=== PATIENT | male | born 1975 | race Caucasian/White ===

== ENCOUNTER → 2016-06-30 | Outpatient (CLI) | payer OTHER ==
[~2016-06-30] MED LIST: TIZA4CAP3 PO
== END ==
LOC: M OUTALCOH 08:05
PROVIDERS: ATTEND Psychiatry & Neurology Psychiatry
DX: F11.20 Opioid dependence, uncomplicated (principal)

== ENCOUNTER 2016-07-04 09:00 | Outpatient (RCR) | payer MEDICAID | END 2016-07-06 | LOC: M OUTALCOH 09:00 | PROVIDERS: ATTEND Psychiatry & Neurology Psychiatry | DX: F11.20 Opioid dependence, uncomplicated (principal); F17.200 Nicotine dependence, unspecified, uncomplicated ==

== ENCOUNTER 2016-07-30 10:00 | Outpatient (RCR) | payer MEDICAID | END 2016-08-06 | LOC: M OUTALCOH 10:00 | PROVIDERS: ATTEND Psychiatry & Neurology Psychiatry | DX: F11.20 Opioid dependence, uncomplicated (principal); F17.200 Nicotine dependence, unspecified, uncomplicated ==

== ENCOUNTER 2016-08-29 14:00 | Outpatient (RCR) | payer MEDICAID | END 2016-09-05 | disposition home or self-care (01) | LOC: M OUTALCOH 14:00 | PROVIDERS: ATTEND Psychiatry & Neurology Psychiatry | DX: F11.20 Opioid dependence, uncomplicated (principal); F17.200 Nicotine dependence, unspecified, uncomplicated ==

== ENCOUNTER 2016-10-02 10:00 | Outpatient (RCR) | payer MEDICAID ==
[2016-10-06] MEDS ORDERED: PREG100CA PO (19:21)
== END 2016-10-06 ==
LOC: M OUTALCOH 10:00
PROVIDERS: ATTEND Psychiatry & Neurology Psychiatry
DX: F11.20 Opioid dependence, uncomplicated (principal); F17.200 Nicotine dependence, unspecified, uncomplicated

== ENCOUNTER 2016-10-06 19:15 | Emergency (ER) | payer MEDICAID, OTHER ==
[~2016-10-06] VITALS: Ht 180.3 cm; Wt 70.5 kg
[2016-10-06] MEDS ORDERED: PREG100CA PO (19:21)
[2016-10-06 20:30] VITALS: BP 138/82
--- NOTE | 2016-10-07 00:47 | REP ---
Clinical: Trauma . Technique: AP, lateral, bilateral oblique views right ankle . Findings: No acute fracture or dislocation. Skeletal structures and joint spaces are intact and normal. Ankle mortise appears stable. No subcutaneous emphysema or radiodense foreign body. Impression: Normal right ankle radiograph series. Signed by Colton Caceres MD 10/07/2016 12:38 A
== END 2016-10-06 20:32 | disposition home or self-care (01) ==
LOC: M ED 19:15
DX: S93.401A Sprain of unspecified ligament of right ankle, initial encounter (principal); Z72.0 Tobacco use; X50.3XXA Overexertion from repetitive movements, initial encounter; Y92.89 Other specified places as the place of occurrence of the external cause; Y93.01 Activity, walking, marching and hiking; Y99.9 Unspecified external cause status

== ENCOUNTER 2016-10-31 09:00 | Outpatient (RCR) | payer MEDICAID ==
[~2016-10-31 09:00] MED LIST changes: +PREG100CA PO
[2016-11-02] MEDS ORDERED: SUBO4MIS SL (14:41)
[2016-11-02] MEDS ORDERED: KETO2CR EXT (16:01)
== END 2016-11-06 ==
LOC: M OUTALCOH 09:00
PROVIDERS: ATTEND Psychiatry & Neurology Psychiatry
DX: F11.20 Opioid dependence, uncomplicated (principal); F17.200 Nicotine dependence, unspecified, uncomplicated

== ENCOUNTER 2016-11-02 14:19 | Emergency (ER) | payer MEDICAID, OTHER ==
[~2016-11-02] VITALS: Ht 180.3 cm; Wt 71.8 kg
[2016-11-02] MEDS ORDERED: SUBO4MIS SL (14:41)
[2016-11-02] MEDS ORDERED: KETO2CR EXT (16:01)
[2016-11-02 16:21] VITALS: BP 132/78
== END 2016-11-02 16:22 | disposition home or self-care (01) ==
LOC: M ED 14:19
DX: B36.0 Pityriasis versicolor (principal)

== ENCOUNTER 2016-12-04 16:00 | Outpatient (RCR) | payer MEDICAID ==
[~2016-12-04 16:00] MED LIST changes: +KETO2CR EXT; +SUBO4MIS SL
== END 2016-12-06 ==
LOC: M OUTALCOH 16:00
PROVIDERS: ATTEND Psychiatry & Neurology Psychiatry
DX: F11.20 Opioid dependence, uncomplicated (principal); F17.200 Nicotine dependence, unspecified, uncomplicated

== ENCOUNTER 2017-02-04 11:00 | Outpatient (RCR) | payer MEDICAID | END 2017-02-05 | LOC: M OUTALCOH 11:00 | PROVIDERS: ATTEND Psychiatry & Neurology Psychiatry | DX: F11.20 Opioid dependence, uncomplicated (principal); F17.200 Nicotine dependence, unspecified, uncomplicated ==

== ENCOUNTER → 2017-10-05 | Outpatient (CLI) | payer OTHER | LOC: M PAIN 09:45 | DX: M54.12 Radiculopathy, cervical region (principal); M96.1 Postlaminectomy syndrome, not elsewhere classified; M79.1 Myalgia; J45.909 Unspecified asthma, uncomplicated; F11.10 Opioid abuse, uncomplicated; F17.210 Nicotine dependence, cigarettes, uncomplicated; Z91.030 Bee allergy status; Z79.899 Other long term (current) drug therapy | CPT/HCPCS: G0463 ==

== ENCOUNTER → 2017-12-30 | Outpatient (CLI) | payer OTHER | LOC: M PAIN 11:15 | DX: M54.12 Radiculopathy, cervical region (principal); M96.1 Postlaminectomy syndrome, not elsewhere classified; M79.18 Myalgia, other site; J45.909 Unspecified asthma, uncomplicated; F11.20 Opioid dependence, uncomplicated; Z79.899 Other long term (current) drug therapy; Z91.030 Bee allergy status; Z87.891 Personal history of nicotine dependence | CPT/HCPCS: G0463 ==

== ENCOUNTER → 2018-05-10 | Outpatient (CLI) | payer OTHER ==
[~2018-05-10] MED LIST changes: +TIZA4CAP PO; -TIZA4CAP3 PO
--- NOTE | 2018-05-24 00:07 | ECWPNPC ---
PATIENT NAME: FERMIN WEISS : 1975 GENDER: MALE VISIT DATE: 05/10/2018 DISCHARGE DATE: 05/10/18 1129 VISIT LOCKED DATE TIME: PHYSICIAN: PAULETTE VALENTIN MD RESOURCE: PAULETTE VALENTIN MD REASON FOR APPOINTMENT 1. W/C NECK HISTORY OF PRESENT ILLNESS HISTORY OF PRESENT ILLNESS: PAIN THE PATIENT DESCRIBES THE PAIN... 43 YEAR OLD MALE PATIENT WITH A HISTORY OF CHRONIC NECK PAIN. THE PATIENT DESCRIBES THE PAIN ACHING, SHARP, STABBING, SHOOTING, AND CONTINUOUS WITH A PAIN SCORE OF 8-10/10 DEPENDING ON PHYSICAL ACTIVITY. THE PATIENT WAS HURT IN A WORK RELATED INJURY ON 10/07/2014 WHILE WORKING FOR [employer] WHEN HE WAS CHANGING A TV AND FELT A SHARP PAIN CAUSING HIM TO DROP THE TV AND INJURE HIS NECK. THE PATIENT HAD NECK SURGERY IN 2016, BUT SAYS THAT HIS PAIN PERSISTED. THE PATIENT SAYS THAT THE PAIN STARTS IN HIS NECK AREA AND RADIATES UP CAUSING HEADACHES AND DOWN INTO HIS ARMS. THE PATIENT SAYS THAT PHYSICAL THERAPY HAS HELPED HIM IN THE PAST. PATIENT DENIES UNEXPLAINABLE WEIGHT LOSS, FEVER, CHILLS, NEW CHANGES ON HIS URINARY OR BOWEL CONTROL. FALL RISK SCREENING: SCREENING : NO FALLS IN THE PAST YEAR. CURRENT MEDICATIONS TAKING SUBOXONE 8-2 MG FILM SUBLINGUAL BID TAKING ALBUTEROL SULFATE HFA 108 (90 BASE) MCG/ACT AEROSOL SOLUTION 2 PUFFS NEEDED INHALATION EVERY 4 HRS TAKING EPIPEN 2-FAHEEM 0.3 MG/0.3ML SOLUTION AUTO-INJECTOR INJECTION MEDICATION LIST REVIEWED AND RECONCILED WITH THE PATIENT PAST MEDICAL HISTORY ASTHMA STATES HE HAD PFT YEARS AGO SUBSTANCE ABUSE, HEROIN TOBACCO ABUSE STARTED SMOKING AGE 10 1-11/2 PKS PER DAY COMP DILIA- NECK INJURY GERD HEADACHES ALLERGIES BEE STINGS: ANAPHYLAXIS: ALLERGY SEASONAL: ALLERGY SURGICAL HISTORY CARPAL TUNNEL-RIGHT JULY 2016 CERVICAL FUSION C4-7 12/18/16 FAMILY HISTORY FATHER: ALIVE 80 YRS, COPD EMPHYSEMA ARTHRITIS, WAS HEAVY SMOKER DRINKER QUIT 10 YRS AGO MOTHER: , LUNG CANCER SMOKER, PASSED 2002, BIPOLAR SCHIZO TOOK MEDS 2 BROTHERS- (OLDER BROTHER ON POT) (YOUNGER BROTHER DRINKER) 1 SISTER- GOOD HEALTH1 SON PASSED AGE 19 OF SEPTIC SHOCK ? HEART ISSUES NEVER FOUND OUT WHY (BORN WITH HYDROCEPHALUS)1 DAUGHTER 15 (THINKS SHE IS 35). SOCIAL HISTORY GENERAL: TOBACCO USE ARE YOU A:FORMER SMOKER HOW LONG HAS IT BEEN SINCE YOU LAST SMOKED?6-12 MONTHS LATEX QUESTIONNAIRE LATEX ALLERGY : HAVE YOU EVER DEVELOPED ANY TYPE OF REACTION AFTER HANDLING LATEX PRODUCTS SUCH RUBBER GLOVES, CONDOMS, DIAPHRAGMS, BALLOONS, SOCKS, OR UNDERWEAR?NO LATEX ALLERGY : HAVE YOU EVER DEVELOPED ANY TYPE OF REACTION DURING OR AFTER DENTAL APPOINTMENT, VAGINAL/RECTAL EXAMINATION, SURGICAL PROCEDURE, OR ANY OTHER EXPOSURE?NO LATEX RISK : HAVE YOU EVER HAD ANY DIFFICULTY BREATHING OR HIVES AFTER EATING OR HANDLING ANY FRUITS, OR VEGETABLES; SUCH KIWI, BANANAS, STONE FRUITS, OR CHESTNUTSNO LATEX RISK : DO YOU HAVE A PREVIOUS PERSONAL HISTORY OF MORE THAN NINE SURGERIES, SPINA BIFIDA, OR REPEATED CATHERTIZATIONS? NO LATEX RISK : ARE YOU FREQUENTLY EXPOSED TO LATEX PRODUCTS IN YOUR OCCUPATION?NO DATE ASKED : 05/10/2018 LUNG CANCER SCREENING SMOKING STATUS:FORMER SMOKER ALCOHOL SCREENING DID YOU HAVE A DRINK CONTAINING ALCOHOL IN THE PAST YEAR?YES POINTS0 INTERPRETATIONNEGATIVE RECREATIONAL DRUG USE DRUG USE?YES HOW OFTEN AND HOW MUCH? PAST HEROIN ADDICTION CURRENTLY IN TREATMENT PROGRAM AT [facility] CAFFEINE CAFFEINE USE?YES HOW OFTEN AND HOW MUCH? 1-2 PER DAY SODA SEXUAL HX HAD SEX IN THE LAST 12 MONTHS (VAGINAL, ORAL, OR ANAL)?YES WITHWOMEN ONLY USE PROTECTION?NO PREVENTION STRATEGIES DISCUSSED:OTHER HAVE YOU EVER HAD AN STD?NO HIV / HEP-C SCREENING HIV TEST OFFERED TO PATIENT:YES DATE OFFERED:10/22/2016 TEST ACCEPTED:NO REASON:PATIENT DECLINED HEP-C TEST OFFERED TO PATIENT:YES DATE OFFERED:10/22/2016 TEST ACCEPTED:NO REASON:PATIENT DECLINED CONFUCIANIST [id number] NONE NO MORMON BELIEFS THAT WOULD IMPACT HEALTH CARE. LANGUAGE LANGUAGES SPOKEN:TURKMEN EDUCATION LEVEL OF EDUCATION:FINISHED HIGH SCHOOL LEARNING BARRIERS / SPECIAL NEEDS CHANGE FROM LAST VISIT?NO BARRIERS TO LEARNING?NO HEARING IMPAIRED?NO VISION IMPAIRED?YES :CORRECTIVE LENSES COGNITIVELY IMPAIRED?NO READINESS TO LEARN?YES LEARNING PREFERENCES?NO LEARNING CAPABILITIES PRESENT?YES EMOTIONAL BARRIERS?NO SPECIAL DEVICES?NO RECEIVING AND PROCESSING SUPERVISOR NEEDED?NO DOMESTIC VIOLENCE DO YOU FEEL SAFE IN YOUR ENVIRONMENT?YES OCCUPATION: UNEMPLOYED-ON COMP. DIET: REGULAR. EXERCISE: NO REGULAR EXERCISE. MARITAL STATUS: SINGLE. OTHERS AT HOME: DAUGHTER, BROTHER . PAIN CLINIC PFS, CLERGY, PUBLIC HEALTH REFERRALS PFS REFERRAL NEEDED?NO CLERGY REFERRAL NEEDED?NO PUBLIC HEALTH REFERRAL NEEDED?NO WAS THE PROVIDER NOTIFIED OF ANY PERTINENT INFO?NO HAS THE PATIENT BEEN EDUCATED REGARDING HIS/HER PLAN OF CARE?YES HAS THE PATIENT BEEN EDUCATED REGARDING PAIN, THE RISK FOR PAIN, THE IMPORTANCE OF EFFECTIVE PAIN MANAGEMENT, AND THE PAIN ASSESSMENT PROCESS?YES HOUSING: OWNS HOME. ADVANCE DIRECTIVE ADVANCE DIRECTIVE DISCUSSED WITH PATIENT:YES DECLINED HCP INFORMATION. REVIEWED WITH PATIENT 05/10/18 1053 JS. HOSPITALIZATION/MAJOR DIAGNOSTIC PROCEDURE [facility] OCTOBER 2016 SURGURY REVIEW OF SYSTEMS REVIEWED BY: PROVIDER: PAULETTE VALENTIN MD . CONSTITUTIONAL: ANY CHANGE IN YOUR MEDICAL CONDITION? NO . CHILLS NO . FEVER NO . INFECTION: DO YOU HAVE NEW INFECTIONS? NO . DO YOU HAVE HISTORY OF MRSA? NO . MUSCULOSKELETAL: ANY NEW PATTERNS OF PAIN OR NUMBNESS? YES, STATES PAIN IS NOW CONSTANT, AWAKENS HIM AT NIGHT . GASTROENTEROLOGY: ANY NEW CHANGE IN BOWEL CONTROL? NO . GENITOURINARY: ANY NEW CHANGE IN BLADDER CONTROL? NO . IS THERE A CHANCE YOU COULD BE ? NO . HEMATOLOGY/LYMPH: DO YOU TAKE ANY BLOOD THINNERS? (FOR EXAMPLE- COUMADIN, PLAVIX, AGGRENOX, PLATEL, PRADAXA, OR XARELTO) NO . WHEN WAS YOUR LAST DOSE? DATE: TIME: . NEUROLOGY: HAVE YOU FALLEN IN THE PAST 12 MONTHS? NO . ANY NEW EXTREMITY NUMBNESS OR WEAKNESS? NO, PAIN TO BILATERAL ARMS, NUMBNESS/TINGLING TO BILATERAL HANDS CONSTANT . CARDIOLOGY: DO YOU HAVE A PACEMAKER OR DEFIBRILLATOR? NO . RESPIRATORY: HAVE YOU BEEN SICK IN THE PAST WEEK? NO . FEVER NO . FLU LIKE SYMPTOMS? NO . COUGH NO . INTEGUMENTARY: DO YOU HAVE ANY RASHES OR OPEN SORES? NO . ALLERGIC/IMMUNO: ARE YOU ALLERGIC TO IV DYE? NO . ANY NEW ALLERGIES? NO . PSYCHIATRIC: DO YOU HAVE THOUGHTS OF HURTING YOURSELF OR SOMEONE ELSE? NO . ARE YOU ABUSED, NEGLECTED, OR IN AN UNSAFE ENVIRONMENT? NO . ENDOCRINOLOGY: ARE YOU DIABETIC? NO . OTHER: DO YOU NEED ANY PRESCRIPTIONS? NO . IF YES, PLEASE LIST: ____ . ANY NEW PROBLEMS WITH YOUR MEDICATIONS? NO . WHEN DID YOU LAST EAT? ____ . WHEN DID YOU LAST DRINK? ____ . WHAT DID YOU LAST DRINK? ____ . NAME OF PERSON DRIVING YOU HOME? ____ . DO YOU HAVE ANY OTHER QUESTIONS OR CONCERNS NO . VITAL SIGNS WT 167.6 LBS, HT 5'11", BMI 23.37 INDEX, BP 150/88 MM HG, HR 61 /MIN, RR 18 /MIN, TEMP 97.8 F, OXYGEN SAT % 96%, SAFE IN ENV? (Y/N) YES, NA INITIALS SC 10:46, REVIEWED BY: JS. EXAMINATION GENERAL EXAMINATION: PATIENT IS ALERT O X 3 AND COOPERATIVE. PATIENT IS UNABLE TO EXTEND HIS HEAD. THE PATIENT EXPRESSED HE DID NOT WANT ME TO TOUCH HIS NECK DUE TO THE SEVERE TENDERNESS. PATIENT IS UNABLE TO ABDUCT THE UPPER EXTREMITIES. HAND SITE LEAD OVER THE RIGHT SIDE IS REDUCED. MRI OF THE CERVICAL SPINE DONE ON 01/02/2015 SHOWS A DISC PROTRUSION AT C4-C5. ASSESSMENTS CERVICAL POST-LAMINECTOMY SYNDROME - M96.1 (PRIMARY) TREATMENT CERVICAL POST-LAMINECTOMY SYNDROME CLINICAL NOTES: WE DISCUSSED SEVERAL ISSUES WITH MR. WEISS'S PAIN MANAGEMENT CASE. I WOULD LIKE THE PATIENT TO RETURN TO PHYSICAL THERAPY 2 TIMES PER WEEK FOR 6 WEEKS BECAUSE IT HAS HELPED IMPROVE HIS MOBILITY AND FUNCTIONALITY IN THE PAST. WE DISCUSSED OPTIONS FOR PAIN MANAGEMENT INCLUDING GABAPENTIN, TRIGGER POINT INJECTIONS, AND A CERVICAL EPIDURAL STEROID INJECTION, BUT THE PATIENT DOES NOT WISH TO TRY MEDICATIONS OR INTERVENTIONS AT THIS TIME. I WILL REFER THE PATIENT TO GRAYSON KRUGER SINCE THE PATIENT PREFERS NOT TO DO INTERVENTIONS. THE PATIENT WILL FOLLOW UP IN 3 MONTHS. INSTRUCTIONS WERE GIVEN, QUESTIONS WERE ANSWERED, PATIENT REPORTS UNDERSTANDING AND AGREES WITH THE PLAN. I, EDITA BOONE, DOCUMENTED THE ABOVE INFORMATION ACTING A SCRIBE FOR DR. VALENTIN. I HAVE REVIEWED THE ABOVE DOCUMENT, WRITTEN BY EDITA FRAZIER AND I VERIFY THAT IT IS ACCURATE. PROCEDURES PN WORKMANS' COMP OPINION IN YOUR OPINION, WAS THE INCIDENT THAT THE PATIENT DESCRIBED THE COMPETENT MEDICAL CAUSE OF THIS INJURY/ILLNESS? YES ARE THE PATIENT'S COMPLAINTS CONSISTENT WITH HIS/HER HISTORY OF THE INJURY/ILLNESS? YES IS THE PATIENT'S HISTORY OF THE INJURY/ILLNESS CONSISTENT WITH YOUR OBJECTIVE FINDING? YES WHAT IS THE PERCENTAGE OF TEMPORARY IMPAIRMENT? TOTAL = 100% IS THE PATIENT WORKING? NO DOCTOR ON SITE: PAULETTE NIEVES MD PROCEDURE CODES FA211 ESTABILISHED PATIENT [facility] FACILITY CHARGE G8427 CURRENT MEDS W/DOSAGES DOCUMENTED G3330 PAIN ASSESS POS TOOL F/U PLAN DOC DISPOSITION & COMMUNICATION FOLLOW UP 3 MONTHS (REASON: W/C NECK) ELECTRONICALLY SIGNED BY PAULETTE VALENTIN MD, MD ON 05/22/2018 AT 07:04 PM EDT DISCLAIMER : THIS IS A VISIT SUMMARY EXTRACTED FROM THE [employer] CHART. IT IS NOT A COPY OF THE [employer] PROGRESS NOTE. RUTHANND
== END ==
LOC: M PAIN 10:30
PROVIDERS: ATTEND Anesthesiology
DX: M96.1 Postlaminectomy syndrome, not elsewhere classified (principal); J45.909 Unspecified asthma, uncomplicated; Z79.899 Other long term (current) drug therapy; Z91.030 Bee allergy status; Z86.59 Personal history of other mental and behavioral disorders; Z87.891 Personal history of nicotine dependence

== ENCOUNTER → 2018-09-14 | Outpatient (REF) ==
--- NOTE | 2018-09-14 21:52 | REP ---
Clinical: Pain and disability. Technique: AP, lateral, open mouth views. Findings: Evidence for prior fixation from C4 through C7. Alignment and lordosis maintained. No acute fracture / compression injury or subluxation. Impression: No significant degenerative changes. Anterior fixation C4 - C7. Electronically Signed by Colton Caceres MD 09/14/2018 09:43 P
== END ==
LOC: M SMT 10:08
PROVIDERS: ATTEND Internal Medicine
DX: Z02.71 Encounter for disability determination (principal)

== ENCOUNTER → 2019-02-25 | Outpatient (REF) | payer OTHER ==
[2019-02-25 12:40] LABS: ALBUMIN 3.7 GM/DL (3.2-5.2); ALT/SGPT 43 U/L (12-78); BILIRUBIN,TOTAL 0.3 MG/DL (0.2-1.0); BLOOD UREA NITROGEN 13 MG/DL (7-18); CALCIUM LEVEL 9.3 MG/DL (8.5-10.1); CARBON DIOXIDE LEVEL 30 MEQ/L (21-32); CHLORIDE LEVEL 108 MEQ/L (98-107); CHOLESTEROL LEVEL 219 MG/DL (<200); CHOLESTEROL RISK RATIO 4.562 (<5); CREATININE FOR GFR 0.95 MG/DL (0.70-1.30); GLOMERULAR FILTRATION RATE > 60.0 (>60); GLUCOSE, FASTING 91 MG/DL (70-100); HDL CHOLESTEROL 48 MG/DL (>40); LDL CHOLESTEROL 156 MG/DL (<100); NON-HDL-C 171 MG/DL; POTASSIUM SERUM 4.4 MEQ/L (3.5-5.1); SODIUM LEVEL 144 MEQ/L (136-145); TOTAL PROTEIN 7.1 GM/DL (6.4-8.2); TRIGLYCERIDES LEVEL 74 MG/DL (<150)
[2019-02-25 12:46] LABS: HEMOGLOBIN A1c 5.7 %
== END ==
LOC: M LAB REF 12:02
PROVIDERS: ATTEND Family Medicine
DX: E78.5 Hyperlipidemia, unspecified (principal); R73.03 Prediabetes

== ENCOUNTER → 2019-07-20 | Outpatient (CLI) | payer OTHER ==
[~2019-07-20] MED LIST changes: +PROAAER10 INH
[2019-07-20 13:33] LABS: ALBUMIN 3.9 GM/DL (3.2-5.2); ALT/SGPT 39 U/L (12-78); BILIRUBIN,TOTAL 0.4 MG/DL (0.2-1.0); BLOOD UREA NITROGEN 10 MG/DL (7-18); CALCIUM LEVEL 9.3 MG/DL (8.5-10.1); CARBON DIOXIDE LEVEL 32 MEQ/L (21-32); CHLORIDE LEVEL 106 MEQ/L (98-107); CREATININE FOR GFR 0.89 MG/DL (0.70-1.30); FREE T4 0.89 NG/DL (0.76-1.46); GLOMERULAR FILTRATION RATE > 60.0 (>60); GLUCOSE, FASTING 98 MG/DL (70-100); POTASSIUM SERUM 4.4 MEQ/L (3.5-5.1); SODIUM LEVEL 142 MEQ/L (136-145); TOTAL PROTEIN 7.2 GM/DL (6.4-8.2)
== END ==
LOC: M PLALAB 09:51
PROVIDERS: ATTEND Family Medicine Addiction Medicine
DX: M79.89 Other specified soft tissue disorders (principal)

== ENCOUNTER → 2019-07-30 | Outpatient (CLI) | payer OTHER ==
[~2019-07-30] MED LIST changes: +ROXI1TAB2 PO
== END ==
LOC: M LABSMTC 10:15
PROVIDERS: ATTEND Anesthesiology
DX: Z01.812 Encounter for preprocedural laboratory examination (principal); Z11.59 Encounter for screening for other viral diseases

== ENCOUNTER 2019-08-02 11:22 | Day surgery (SDC) | payer OTHER ==
[~2019-08-02] VITALS: Ht 180.3 cm; Wt 95.3 kg
[~2019-08-02 11:22] MED LIST changes: +LR 1,000 ML IV ONE; -ROXI1TAB2 PO; +ceFAZolin SOD 2 GM in IV 1 EA IV ONE
[2019-08-02] MEDS ORDERED: LIDOCAINE 1% SDV 30ML VIAL As Ordered ONE (12:42)
[2019-08-02] MEDS ORDERED: BUPIVACAINE HCL 0.25% 30ML VIAL As Ordered ONE (12:43)
[2019-08-02] MEDS ORDERED: ROXI1TAB2 PO (13:21)
[2019-08-02] MEDS ORDERED: LIDOCAINE 2% 100MG/5ML SDV (FOR ANES.) As Ordered ONE (13:38)
[2019-08-02] MEDS ORDERED: propofoL 200 MG/20 ML VIAL As Ordered ONE (13:38)
[2019-08-02] MEDS ORDERED: ROCURONIUM BROMIDE 50 MG/5 ML VIAL As Ordered ONE (13:38)
[2019-08-02] MEDS ORDERED: MIDAZOLAM INJ 2MG/2ML VIAL (J2250 PER 1MG) As Ordered ONE (13:38)
[2019-08-02] MEDS ORDERED: fentaNYL 100 MCG/2 ML INJECTION (J3010) As Ordered ONE (13:38)
[2019-08-02] MEDS ORDERED: dexameTHASONE 4 MG/ML 1ML VIAL (J1100 PER 1MG) As Ordered ONE (13:39)
[2019-08-02] MEDS ORDERED: HYDROmorphone HCL 2 MG/ML 1ML VIAL (J1170) As Ordered ONE (13:44)
[2019-08-02] MEDS ORDERED: ONDANSETRON 4MG/2ML VIAL As Ordered ONE (13:51)
[2019-08-02] MEDS ORDERED: KETOROLAC 60 MG/2 ML VIAL As Ordered ONE (13:53)
[2019-08-02] MEDS ORDERED: SUGAMMADEX SODIUM 500 MG/5 ML VIAL (BRIDION) As Ordered ONE (13:54)
--- NOTE | 2019-08-02 15:05 | ROOPDOC ---
[facility] Report Of Operation Report of Operation DATE OF PROCEDURE: 08/02/19 PREPROCEDURE DIAGNOSES: umbilical hernia. POSTPROCEDURE DIAGNOSES: umbilical hernia. PROCEDURE: open umbilical hernia repair with mesh. SURGEON: Gregorio Negrete MD MATERIALS ASSISTANT: ANESTHESIA: General Anesthesia ESTIMATED BLOOD LOSS: Approximately 10 mL. COMPLICATIONS: NONE. REMARKS: 44 M with long standing umbilical hernia that is increasing in size,most of the time protruding out and causing him discomfort. Pt on suboxone preoperatively. PROCEDURE NOTE: preperitoneal fat containing umbilical hernia that is partially incarcerated and reduced back. A 2 x 1 cm defect noted with slight thinning of the fascia. A preperitoneal pocket was created with blunt dissection and a 6.4 cm round ventral patch mesh placed. DESCRIPTION OF PROCEDURE: Patient was given 2 g Ancef IV preoperatively for surgical prophylaxis. He was brought to the operating room, placed supine on the table. Compression boots were placed on both lower extremities for DVT prophylaxis. Gen. endotracheal anesthesia started. His abdomen was widely prepped and draped in usual sterile fashion.We paused for a surgical timeout using both pre-incision safety checklist to verify correct patient, procedure site and additional clinical information prior to beginning the procedure Patient has roughly a 3x2 cm soft tissue nodular bulging of the umbilical cleft consistent with a small umbilical hernia. I was able to partially reduce this once he is under anesthesia. . The subcutaneous area around the umbilicus was widely infiltrated with local anesthesia using 1% lidocaine and 1/4% Marcaine mixture. A curvilinear skin incision was created at the bottom of the umbilical cleft and slowly deepened through the subcutaneous tissue. Umbilical skin cleft was dissected free off the underlying tissues. The fascial opening underneath the umbilicus is mostly filled with preperitoneal fat tissue which was reduced back into the abdomen below the level of the fascia. I then introduced a piece of 4 x 4 gauze to further reduce any underlying tissues away from the fascial defect. The subcutaneous tissue was dissected free off the anterior fascia for about 2 cm. The edges were freshened up. I then created a preperitoneal pocket by dissecting the peritoneum of the fascial opening and extended this with blunt dissection using a 4 x 4 gauze and my finger circumferentially to accommodate a 6.4 cm ventral patch mesh. After checking for hemostasis, the peritoneal opening was sutured closed with 2-0 Vicryl in a pursestring fashion. The ventral patch mesh was placed inside the preperitoneal pocket making sure this is laying adequately flat underneath the fascial opening. This was secured to the fascia and 4 cardinal corners with a 0 Vicryl with the flaps trimmed to the level of the fascia and incorporated with the suture fixing the mesh to the abdominal wall. The fascial opening was then closed with 0 Ethibond mattress fashion. The skin incision was then closed while tacking the underside of the umbilical skin to the fascia to re-create the umbilical skin cleft using 3-0 Vicryl. 3-0 Vicryl was used to appose the subcutaneous tissue and 4-0 Monocryl placed subcuticularly used to close the skin incision. Steri-Strips and gauze dressings were then placed on top of the umbilicus covered with Tegaderm gauze. Patient tolerated procedure well. Was promptly awakened, extubated and brought to recovery room in stable condition. GREGORIO NEGRETE MD August 02, 2019 13:23
[2019-08-02] MEDS ORDERED: ONDANSETRON 4MG/2ML VIAL IV PRN (15:15)
[2019-08-02] MEDS ORDERED: LR 1,000 ML IV SCH (15:15)
[2019-08-02] MEDS ORDERED: fentaNYL 100 MCG/2 ML INJECTION (J3010) IV PRN (15:15)
[2019-08-02] MEDS ORDERED: oxyCODONE 5MG TAB PO PRN ×2 (15:30)
[2019-08-02 16:45] VITALS: BP 143/81
[2019-08-02] MEDS ORDERED: KETOROLAC 30 MG/ML 1ML VIAL IV SCH (20:00)
== END 2019-08-02 16:50 | disposition home or self-care (01) ==
LOC: M SDC 11:22
PROVIDERS: ATTEND Surgery
DX: K42.9 Umbilical hernia without obstruction or gangrene (principal); K21.9 Gastro-esophageal reflux disease without esophagitis; Z87.891 Personal history of nicotine dependence; Z79.899 Other long term (current) drug therapy; Z88.8 Allergy status to other drugs, medicaments and biological substances; Z91.030 Bee allergy status
CPT/HCPCS: 49585; C1781; J0690; J1100; J1170; J1885; J2250; J2405; J3010

== ENCOUNTER → 2020-04-25 | Outpatient (REF) | payer OTHER ==
[~2020-04-25] MED LIST changes: -LR 1,000 ML IV ONE; +ROXI1TAB2 PO; -ceFAZolin SOD 2 GM in IV 1 EA IV ONE
[2020-04-25 17:04] LABS: BASO # 0.1 10^3/uL (0.0-0.2); BASO % 0.8 % (0.0-1.0); EOS # 0.3 10^3/uL (0.0-0.5); EOS % 3.8 % (0.0-3.0); HEMATOCRIT 44.6 % (42.0-52.0); HEMOGLOBIN 14.6 g/dl (13.5-17.5); LYMPH # 2.4 10^3/uL (1.5-5.0); LYMPH % 30.7 % (24.0-44.0); MEAN CORPUSCULAR HEMOGLOBIN 31.3 pg (27.0-33.0); MEAN CORPUSCULAR HGB CONC 32.7 g/dl (32.0-36.5); MEAN CORPUSCULAR VOLUME 95.7 fl (80.0-96.0); MONO # 0.8 10^3/uL (0.0-0.8); MONO % 10.1 % (2.0-8.0); NEUTROPHILS # 4.3 10^3/uL (1.5-8.5); NEUTROPHILS % 54.3 % (36.0-66.0); PLATELET COUNT, AUTOMATED 264 10^3/uL (150-450); RED BLOOD COUNT 4.66 10^6/uL (4.30-6.10); WHITE BLOOD COUNT 7.9 10^3/uL (4.0-10.0)
[2020-04-25 17:15] LABS: ALBUMIN 3.8 GM/DL (3.2-5.2); ALT/SGPT 33 U/L (12-78); BILIRUBIN,TOTAL 0.3 MG/DL (0.2-1.0); BLOOD UREA NITROGEN 9 MG/DL (7-18); CALCIUM LEVEL 8.8 MG/DL (8.5-10.1); CARBON DIOXIDE LEVEL 33 MEQ/L (21-32); CHLORIDE LEVEL 104 MEQ/L (98-107); CHOLESTEROL LEVEL 235 MG/DL (<200); CHOLESTEROL RISK RATIO 5.875 (<5); GLOMERULAR FILTRATION RATE > 60.0 (>60); GLUCOSE, FASTING 119 MG/DL (70-100); HDL CHOLESTEROL 40 MG/DL (>40); LDL CHOLESTEROL 166 MG/DL (<100); NON-HDL-C 195 MG/DL; POTASSIUM SERUM 4.3 MEQ/L (3.5-5.1); SODIUM LEVEL 141 MEQ/L (136-145); TOTAL PROTEIN 7.2 GM/DL (6.4-8.2); TRIGLYCERIDES LEVEL 147 MG/DL (<150)
[2020-04-25 18:47] LABS: HEMOGLOBIN A1c 5.2 %
== END ==
LOC: M LAB REF 16:11
PROVIDERS: ATTEND Physician Assistant
DX: R53.83 Other fatigue (principal); R35.1 Nocturia

== ENCOUNTER → 2020-07-10 | Outpatient (REF) | payer OTHER ==
[2020-07-10 17:40] LABS: BLOOD UREA NITROGEN 13 MG/DL (7-18); CALCIUM LEVEL 9.5 MG/DL (8.5-10.1); CARBON DIOXIDE LEVEL 34 MEQ/L (21-32); CHLORIDE LEVEL 102 MEQ/L (98-107); CREATININE FOR GFR 1.04 MG/DL (0.70-1.30); GLOMERULAR FILTRATION RATE > 60.0 (>60); GLUCOSE, FASTING 74 MG/DL (70-100); POTASSIUM SERUM 4.1 MEQ/L (3.5-5.1); SODIUM LEVEL 140 MEQ/L (136-145)
== END ==
LOC: M LAB REF 16:25
PROVIDERS: ATTEND Physician Assistant
DX: R60.0 Localized edema (principal)

== ENCOUNTER 2020-11-12 00:37 | Emergency (ER) | payer OTHER ==
[~2020-11-12] VITALS: Ht 177.8 cm; Wt 89.0 kg
[2020-11-12 00:37] VITALS: BP 146/70
== END 2020-11-12 03:55 | disposition left against medical advice (07) ==
LOC: M ED 00:37
DX: Z53.29 Procedure and treatment not carried out because of patient's decision for other reasons (principal)

== ENCOUNTER → 2021-02-20 | Outpatient (CLI) | payer MEDICARE, OTHER | LOC: M EKG 12:26 | PROVIDERS: ATTEND Family Medicine | DX: F11.20 Opioid dependence, uncomplicated (principal); R00.1 Bradycardia, unspecified ==

== ENCOUNTER → 2021-02-20 | Outpatient (CLI) | payer MEDICARE, OTHER | LOC: M CARPUL 02-08 14:00 | PROVIDERS: ATTEND Physician Assistant | DX: R60.0 Localized edema (principal) ==

== ENCOUNTER 2021-05-18 21:32 | Emergency (ER) | payer MEDICARE, OTHER ==
[~2021-05-18] VITALS: Ht 180.3 cm; Wt 88.6 kg
[2021-05-18 21:35] VITALS: BP 156/94
[2021-05-18] MEDS ORDERED: METH-1177 PO (21:39)
[2021-05-18] MEDS ORDERED: LIDOCAINE 1% MDV 20ML VIAL SC ONE (22:35)
== END 2021-05-18 23:30 | disposition home or self-care (01) ==
LOC: EDBD 21:32 → M ED 21:32
DX: S61.217A Laceration without foreign body of left little finger without damage to nail, initial encounter (principal); W26.8XXA Contact with other sharp object(s), not elsewhere classified, initial encounter; Y92.018 Other place in single-family (private) house as the place of occurrence of the external cause; Z88.8 Allergy status to other drugs, medicaments and biological substances; Z91.030 Bee allergy status; Z79.891 Long term (current) use of opiate analgesic; F17.210 Nicotine dependence, cigarettes, uncomplicated

== ENCOUNTER → 2021-07-24 | Outpatient (CLI) | payer MEDICARE, OTHER ==
[~2021-07-24] MED LIST changes: +METH-1177 PO
== END ==
LOC: M RAD 17:07
PROVIDERS: ATTEND Nurse Practitioner Family
DX: G95.9 Disease of spinal cord, unspecified (principal)

== ENCOUNTER → 2021-07-24 | Outpatient (CLI) | payer MEDICARE, OTHER ==
[2021-07-24 18:26] LABS: HEMOGLOBIN 15.6 g/dl (13.5-17.5); MEAN CORPUSCULAR HEMOGLOBIN 31.1 pg (27.0-33.0); MEAN CORPUSCULAR HGB CONC 33.2 g/dl (32.0-36.5); MEAN CORPUSCULAR VOLUME 93.8 fl (80.0-96.0); PLATELET COUNT, AUTOMATED 260 10^3/uL (150-450); RED BLOOD COUNT 5.01 10^6/uL (4.30-6.10); WHITE BLOOD COUNT 9.9 10^3/uL (4.0-10.0)
[2021-07-24 19:16] LABS: ALBUMIN 3.9 GM/DL (3.2-5.2); ALT/SGPT 34 U/L (12-78); BILIRUBIN,TOTAL 0.2 MG/DL (0.2-1.0); BLOOD UREA NITROGEN 14 MG/DL (7-18); CALCIUM LEVEL 9.1 MG/DL (8.5-10.1); CARBON DIOXIDE LEVEL 35 MEQ/L (21-32); CHLORIDE LEVEL 104 MEQ/L (98-107); CREATININE FOR GFR 0.98 MG/DL (0.70-1.30); GLOMERULAR FILTRATION RATE > 60.0 (>60); GLUCOSE, FASTING 92 MG/DL (70-100); POTASSIUM SERUM 4.3 MEQ/L (3.5-5.1); SODIUM LEVEL 142 MEQ/L (136-145); TOTAL PROTEIN 7.1 GM/DL (6.4-8.2)
[2021-07-24 19:37] LABS: HEPATITIS B SURFACE ANTIGEN NEGATIVE (NEGATIVE)
[2021-07-24 20:05] LABS: HEPATITIS C VIRUS ABY INDEX 0.1 INDEX (<0.8)
[2021-07-24 20:06] LABS: HIV 1&2 SCREEN CENTAUR NEGATIVE (NEGATIVE)
[2021-07-24 22:31] LABS: GC DNA AMPLIFICATION NEGATIVE (NEGATIVE)
== END ==
LOC: M LAB 17:10
PROVIDERS: ATTEND Family Medicine
DX: F11.20 Opioid dependence, uncomplicated (principal); G95.9 Disease of spinal cord, unspecified

== ENCOUNTER → 2021-09-05 | Outpatient (CLI) | payer MEDICARE, OTHER | LOC: M RAD 09:35 | PROVIDERS: ATTEND Nurse Practitioner Family | DX: S61.217A Laceration without foreign body of left little finger without damage to nail, initial encounter (principal) ==

== ENCOUNTER → 2022-01-10 | Outpatient (REF) | payer MEDICARE, MEDICAID ==
[2022-01-10 13:13] LABS: ALBUMIN 3.5 GM/DL (3.2-5.2); ALT/SGPT 24 U/L (12-78); BILIRUBIN,TOTAL 0.2 MG/DL (0.2-1.0); BLOOD UREA NITROGEN 13 MG/DL (7-18); CALCIUM LEVEL 9.9 MG/DL (8.5-10.1); CARBON DIOXIDE LEVEL 32 MEQ/L (21-32); CHLORIDE LEVEL 100 MEQ/L (98-107); CHOLESTEROL LEVEL 162 MG/DL (<200); CHOLESTEROL RISK RATIO 3.951 (<5); CREATININE FOR GFR 0.78 MG/DL (0.70-1.30); GLOMERULAR FILTRATION RATE > 60.0 (>60); GLUCOSE, FASTING 98 MG/DL (70-100); HDL CHOLESTEROL 41 MG/DL (>40); LDL CHOLESTEROL 103 MG/DL (<100); NON-HDL-C 121 MG/DL; SODIUM LEVEL 137 MEQ/L (136-145); TOTAL PROTEIN 7.2 GM/DL (6.4-8.2); TRIGLYCERIDES LEVEL 89 MG/DL (<150)
== END ==
LOC: M LAB REF 11:58
PROVIDERS: ATTEND Nurse Practitioner Family
DX: E66.3 Overweight (principal)

== ENCOUNTER → 2022-06-19 | Outpatient (REF) | payer MEDICARE, MEDICAID, OTHER ==
[2022-06-19 14:35] LABS: BASO # 0.1 10^3/uL (0.0-0.2); BASO % 0.9 % (0.0-1.0); EOS # 0.4 10^3/uL (0.0-0.5); EOS % 4.4 % (0.0-3.0); LYMPH # 3.5 10^3/uL (1.5-5.0); LYMPH % 35.8 % (24.0-44.0); MEAN CORPUSCULAR HEMOGLOBIN 30.6 pg (27.0-33.0); MEAN CORPUSCULAR HGB CONC 32.6 g/dl (32.0-36.5); MEAN CORPUSCULAR VOLUME 94.1 fl (80.0-96.0); MONO # 0.9 10^3/uL (0.0-0.8); MONO % 8.8 % (2.0-8.0); NEUTROPHILS # 4.9 10^3/uL (1.5-8.5); NEUTROPHILS % 49.9 % (36.0-66.0); PLATELET COUNT, AUTOMATED 329 10^3/uL (150-450); RED BLOOD COUNT 4.57 10^6/uL (4.30-6.10); WHITE BLOOD COUNT 9.8 10^3/uL (4.0-10.0)
[2022-06-19 14:53] LABS: HEMOGLOBIN A1c 5.6 % (4.0-6.0)
[2022-06-19 14:58] LABS: THYROID STIMULATING HORMONE 1.304 uIU/ML (0.55-4.78)
[2022-06-19 16:00] LABS: CHLORIDE LEVEL 104 MMOL/L (98-107); POTASSIUM SERUM 4.3 MMOL/L (3.5-5.1); SODIUM LEVEL 141 MMOL/L (136-145)
[2022-06-19 16:13] LABS: ALBUMIN 3.7 G/DL (3.2-5.2); ALKALINE PHOSPHATASE 80 U/L (46-116); ALT/SGPT 33 U/L (7.0-40); AST/SGOT 23 U/L (<34); BILIRUBIN,TOTAL 0.2 MG/DL (0.3-1.2); BLOOD UREA NITROGEN 24 MG/DL (9-23); CALCIUM LEVEL 8.8 MG/DL (8.5-10.1); CARBON DIOXIDE LEVEL 30 MMOL/L (20-31); CHOLESTEROL LEVEL 173 MG/DL (<200); CHOLESTEROL RISK RATIO 3.03 (<5); GLOMERULAR FILTRATION RATE > 60.0 (>60); GLUCOSE, FASTING 98 MG/DL (60-100); LDL CHOLESTEROL 98.2 MG/DL (<100); TOTAL PROTEIN 6.6 G/DL (5.7-8.2); TRIGLYCERIDES LEVEL 89 MG/DL (<150)
== END ==
LOC: M LAB REF 12:24
PROVIDERS: ATTEND Nurse Practitioner Family
DX: Z13.228 Encounter for screening for other metabolic disorders (principal)

== ENCOUNTER → 2022-09-10 | Outpatient (CLI) | payer MEDICARE, MEDICAID, OTHER | LOC: M WUC 10:44 | PROVIDERS: ATTEND Nurse Practitioner Family | DX: M54.2 Cervicalgia (principal) ==

== ENCOUNTER → 2022-11-21 | Outpatient (REF) | payer MEDICARE, OTHER ==
[2022-11-21 17:07] LABS: BASO # 0.1 10^3/uL (0.0-0.2); BASO % 0.7 % (0.0-1.0); EOS # 0.4 10^3/uL (0.0-0.5); EOS % 3.7 % (0.0-3.0); HEMATOCRIT 39.3 % (42.0-52.0); HEMOGLOBIN 12.8 g/dl (13.5-17.5); LYMPH # 3.3 10^3/uL (1.5-5.0); LYMPH % 33.3 % (24.0-44.0); MEAN CORPUSCULAR HEMOGLOBIN 30.3 pg (27.0-33.0); MEAN CORPUSCULAR HGB CONC 32.6 g/dl (32.0-36.5); MEAN CORPUSCULAR VOLUME 92.9 fl (80.0-96.0); NEUTROPHILS # 5.2 10^3/uL (1.5-8.5); PLATELET COUNT, AUTOMATED 295 10^3/uL (150-450); RED BLOOD COUNT 4.23 10^6/uL (4.30-6.10)
[2022-11-21 17:35] LABS: ALBUMIN 3.6 G/DL (3.2-5.2); ALKALINE PHOSPHATASE 71 U/L (46-116); ALT/SGPT 26 U/L (7.0-40); AST/SGOT 15 U/L (<34); BILIRUBIN,TOTAL 0.2 MG/DL (0.3-1.2); BLOOD UREA NITROGEN 15 MG/DL (9-23); CALCIUM LEVEL 8.8 MG/DL (8.5-10.1); CARBON DIOXIDE LEVEL 33 MMOL/L (20-31); CHLORIDE LEVEL 102 MMOL/L (98-107); CHOLESTEROL LEVEL 183 MG/DL (<200); CHOLESTEROL RISK RATIO 3.03 (<5); CREATININE FOR GFR 0.82 MG/DL (0.70-1.30); GLOMERULAR FILTRATION RATE > 60.0 (>60); GLUCOSE, FASTING 74 MG/DL (60-100); HDL CHOLESTEROL 60.2 MG/DL (>40); LDL CHOLESTEROL 108.2 MG/DL (<100); NON-HDL-C 122.8 MG/DL; POTASSIUM SERUM 4.2 MMOL/L (3.5-5.1); SODIUM LEVEL 139 MMOL/L (136-145); TOTAL PROTEIN 6.6 G/DL (5.7-8.2); TRIGLYCERIDES LEVEL 73 MG/DL (<150)
== END ==
LOC: M LAB REF 16:20
PROVIDERS: ATTEND Nurse Practitioner Family
DX: E78.5 Hyperlipidemia, unspecified (principal); I10 Essential (primary) hypertension

== ENCOUNTER → 2023-03-16 | Outpatient (REF) | payer MEDICARE, OTHER ==
[2023-03-16 13:16] LABS: BASO # 0.1 10^3/uL (0.0-0.2); BASO % 0.7 % (0.0-1.0); EOS # 0.2 10^3/uL (0.0-0.5); EOS % 2.1 % (0.0-3.0); HEMOGLOBIN 14.6 g/dl (13.5-17.5); LYMPH # 3.2 10^3/uL (1.5-5.0); LYMPH % 29.5 % (24.0-44.0); MEAN CORPUSCULAR HEMOGLOBIN 30.2 pg (27.0-33.0); MEAN CORPUSCULAR HGB CONC 33.2 g/dl (32.0-36.5); MEAN CORPUSCULAR VOLUME 91.1 fl (80.0-96.0); NEUTROPHILS # 6.2 10^3/uL (1.5-8.5); NEUTROPHILS % 58.2 % (36.0-66.0); PLATELET COUNT, AUTOMATED 335 10^3/uL (150-450); RED BLOOD COUNT 4.83 10^6/uL (4.30-6.10); WHITE BLOOD COUNT 10.7 10^3/uL (4.0-10.0)
== END ==
LOC: M LAB REF 12:18
PROVIDERS: ATTEND Nurse Practitioner Family
DX: D64.9 Anemia, unspecified (principal)

== ENCOUNTER → 2023-06-09 | Outpatient (CLI) | payer OTHER ==
[~2023-06-09] MED LIST changes: +GASTROGRAFIN SOLUTION 30ML As Ordered ONE
== END ==
LOC: M RAD 15:02
PROVIDERS: ATTEND Surgery
DX: R10.33 Periumbilical pain (principal); R93.2 Abnormal findings on diagnostic imaging of liver and biliary tract; R93.3 Abnormal findings on diagnostic imaging of other parts of digestive tract
CPT/HCPCS: 74176; Q9963

== ENCOUNTER → 2024-02-11 | Outpatient (CLI) | payer OTHER ==
[~2024-02-11] MED LIST changes: -GASTROGRAFIN SOLUTION 30ML As Ordered ONE
== END ==
LOC: M RAD 11:27
PROVIDERS: ATTEND Surgery
DX: R10.9 Unspecified abdominal pain (principal)

== ENCOUNTER → 2024-05-05 | Outpatient (REF) | payer OTHER ==
[2024-05-05 14:39] LABS: BASO # 0.1 10^3/uL (0.0-0.2); BASO % 0.8 % (0.0-1.0); EOS # 0.5 10^3/uL (0.0-0.5); EOS % 3.8 % (0.0-3.0); HEMOGLOBIN 13.6 g/dl (13.5-17.5); LYMPH # 3.3 10^3/uL (1.5-5.0); LYMPH % 26.4 % (24.0-44.0); MEAN CORPUSCULAR HEMOGLOBIN 30.6 pg (27.0-33.0); MEAN CORPUSCULAR HGB CONC 31.6 g/dl (32.0-36.5); MEAN CORPUSCULAR VOLUME 96.6 fl (80.0-96.0); MONO # 1.2 10^3/uL (0.0-0.8); MONO % 9.2 % (2.0-8.0); NEUTROPHILS # 7.4 10^3/uL (1.5-8.5); NEUTROPHILS % 59.5 % (36.0-66.0); PLATELET COUNT, AUTOMATED 350 10^3/uL (150-450); RED BLOOD COUNT 4.45 10^6/uL (4.30-6.10); WHITE BLOOD COUNT 12.5 10^3/uL (4.0-10.0)
[2024-05-05 14:43] LABS: ALBUMIN 3.9 G/DL (3.2-5.2); ALKALINE PHOSPHATASE 87 U/L (40-129); ALT/SGPT 25 U/L (7.0-40); AST/SGOT 12 U/L (<34); BILIRUBIN,TOTAL 0.2 MG/DL (0.3-1.2); BLOOD UREA NITROGEN 17 MG/DL (9-23); CALCIUM LEVEL 9.1 MG/DL (8.5-10.1); CARBON DIOXIDE LEVEL 31 MMOL/L (20-31); CHLORIDE LEVEL 103 MMOL/L (98-107); CHOLESTEROL LEVEL 196 MG/DL (<200); CHOLESTEROL RISK RATIO 2.88 (<5); CREATININE FOR GFR 0.88 MG/DL (0.70-1.30); GLOMERULAR FILTRATION RATE > 60.0 (>60); GLUCOSE, FASTING 122 MG/DL (60-100); LDL CHOLESTEROL 101.8 MG/DL (<100); MAGNESIUM LEVEL 1.8 MG/DL (1.8-2.4); SODIUM LEVEL 142 MMOL/L (136-145); TOTAL PROTEIN 7.2 G/DL (5.7-8.2); TRIGLYCERIDES LEVEL 131 MG/DL (<150)
[2024-05-05 14:46] LABS: TOTAL 25(OH) VITAMIN D 13.9 NG/ML (20.0-100.0)
== END ==
LOC: M LAB REF 12:05
PROVIDERS: ATTEND Nurse Practitioner Family
DX: I10 Essential (primary) hypertension (principal); Z13.220 Encounter for screening for lipoid disorders; E55.9 Vitamin D deficiency, unspecified

== ENCOUNTER 2024-05-17 15:06 | Day surgery (SDC) | payer OTHER ==
[~2024-05-17] VITALS: Ht 180.3 cm; Wt 70.3 kg
[~2024-05-17 15:06] MED LIST changes: +ALBU8.5H INH; +BUPR8SUB SL; +LISI10TA22 PO; +LISI5TAB11 PO; +ceFAZolin SOD 2 GM IV ONCE IV ONE
[2024-05-17 15:37] LABS: HEMATOCRIT 41.1 % (42.0-52.0); HEMOGLOBIN 13.5 g/dl (13.5-17.5); MEAN CORPUSCULAR HEMOGLOBIN 30.8 pg (27.0-33.0); MEAN CORPUSCULAR HGB CONC 32.8 g/dl (32.0-36.5); MEAN CORPUSCULAR VOLUME 93.6 fl (80.0-96.0); PLATELET COUNT, AUTOMATED 332 10^3/uL (150-450); RED BLOOD COUNT 4.39 10^6/uL (4.30-6.10)
[2024-05-17] MEDS ORDERED: LR 1,000 ML IV SCH ×2 (15:40→19:15)
[2024-05-17] MEDS: CelecoXIB 400 MG CAP PO ONE (15:53)
[2024-05-17 16:08] LABS: BLOOD UREA NITROGEN 15 MG/DL (9-23); CARBON DIOXIDE LEVEL 33 MMOL/L (20-31); CHLORIDE LEVEL 102 MMOL/L (98-107); CREATININE FOR GFR 0.99 MG/DL (0.70-1.30); GLOMERULAR FILTRATION RATE > 60.0 (>60); GLUCOSE, FASTING 78 MG/DL (60-100); POTASSIUM SERUM 4.2 MMOL/L (3.5-5.1); SODIUM LEVEL 142 MMOL/L (136-145)
[2024-05-17] MEDS ORDERED: LIDOCAINE 2% 100MG/5ML SDV (FOR ANES.) As Ordered ONE (16:35)
[2024-05-17] MEDS ORDERED: fentaNYL 100 MCG/2 ML INJECTION As Ordered ONE (16:35)
[2024-05-17] MEDS ORDERED: propofoL 200 MG/20 ML VIAL As Ordered ONE (16:35)
[2024-05-17] MEDS ORDERED: MIDAZOLAM INJ 2MG/2ML VIAL As Ordered ONE (16:35)
[2024-05-17] MEDS ORDERED: ONDANSETRON 4MG 2ML VIAL As Ordered ONE (16:35)
[2024-05-17] MEDS ORDERED: ROCURONIUM BROMIDE 50MG/5ML VIAL As Ordered ONE (16:35)
[2024-05-17] MEDS ORDERED: LABETALOL 100MG/20ML VIAL As Ordered ONE (17:57)
[2024-05-17] MEDS: ceFAZolin SOD 2 GM in IV 1 EA IV ONE (18:00)
[2024-05-17] MEDS: LIDOCAINE 1% SDV 30ML VIAL As Ordered ONE (19:00)
[2024-05-17] MEDS: BUPivacaine LIPOSOME/PF 266MG 20ML VIAL (13.3MG/ML)(EXPAREL) As Ordered ONE (19:00)
[2024-05-17] MEDS ORDERED: SUGAMMADEX SODIUM 500 MG/5 ML VIAL (BRIDION) As Ordered ONE (19:14)
[2024-05-17] MEDS ORDERED: ALBUTEROL 6.7GM INHALER **FOR ANES. CART/OMNICELL ONLY As Ordered ONE (19:15)
[2024-05-17] MEDS ORDERED: ONDANSETRON 4MG 2ML VIAL IV PRN (19:15)
[2024-05-17] MEDS: oxyCODONE 5MG TAB PO PRN (20:07)
[2024-05-17] MEDS: fentaNYL 100 MCG/2 ML INJECTION IV PRN (20:07)
[2024-05-17] MEDS: HYDROMORPHONE HCL 0.5 MG/ 0.5 ML SYRINGE IV PRN (20:38)
[2024-05-17 20:58] VITALS: BP 158/101
[2024-05-17] MEDS: lisinopriL 5 MG TAB PO ONE (20:58)
[2024-05-17 21:15] VITALS: BP 167/96; TEMP 99.3; O2SAT 94
== END 2024-05-17 21:32 | disposition home or self-care (01) ==
LOC: M SDC 15:06
PROVIDERS: ATTEND Surgery
DX: R10.33 Periumbilical pain (principal); K66.0 Peritoneal adhesions (postprocedural) (postinfection); M62.08 Separation of muscle (nontraumatic), other site; Z87.19 Personal history of other diseases of the digestive system; G47.30 Sleep apnea, unspecified; Z88.6 Allergy status to analgesic agent; Z79.899 Other long term (current) drug therapy; F11.11 Opioid abuse, in remission
CPT/HCPCS: 36415; 49320; 49623; 64488; 80048; 85027; 88300; J0665; J0666; J0690; J1100; J1171; J1920; J2250; J2405; J3010; S2900

== ENCOUNTER 2024-05-26 18:18 | Inpatient (IN) | payer OTHER ==
[~2024-05-26] VITALS: Ht 180.3 cm; Wt 67.6 kg
[~2024-05-26 18:18] MED LIST changes: -ceFAZolin SOD 2 GM IV ONCE IV ONE
[2024-05-26] MEDS ORDERED: NALOXONE INJ 0.4MG/1ML VIAL As Ordered ONE (18:34)
[2024-05-26] MEDS: NALOXONE INJ 0.4MG/1ML VIAL IV STA (18:35)
[2024-05-26] MEDS: NS 500 ML IV ONE (18:40)
[2024-05-26] MEDS ORDERED: ISOVUE-370 76% 100ML VIAL As Ordered ONE (18:40)
[2024-05-26 18:51] LABS: ABG BASE EXCESS -2.3 (-2.0-2.0); ABG HCO3 25.9 MMOL/L (22.0-26.0); ABG O2 SATURATION 99.4 % (95.0-99.0); ABG PARTIAL PRESSURE CO2 59.8 mmHg (35.0-45.0); ABG PARTIAL PRESSURE O2 269.7 mmHg (75.0-100.0); ABG STANDARD HCO3 22.6 MMOL/L. (22.0-26.0); ABG TOTAL CO2 27.7 MMOL/L (22.0-29.0); ABG pH (ARTERIAL) 7.254 UNITS (7.350-7.450)
[2024-05-26 18:51] LABS: BASO % 0.2 % (0.0-1.0); EOS # 0.3 10^3/uL (0.0-0.5); EOS % 1.3 % (0.0-3.0); HEMATOCRIT 40.9 % (42.0-52.0); LYMPH # 2.1 10^3/uL (1.5-5.0); LYMPH % 10.5 % (24.0-44.0); MEAN CORPUSCULAR HEMOGLOBIN 30.2 pg (27.0-33.0); MEAN CORPUSCULAR HGB CONC 31.8 g/dl (32.0-36.5); MEAN CORPUSCULAR VOLUME 94.9 fl (80.0-96.0); MONO # 1.2 10^3/uL (0.0-0.8); MONO % 5.9 % (2.0-8.0); NEUTROPHILS # 16.4 10^3/uL (1.5-8.5); NEUTROPHILS % 81.6 % (36.0-66.0); PLATELET COUNT, AUTOMATED 383 10^3/uL (150-450); RED BLOOD COUNT 4.31 10^6/uL (4.30-6.10)
[2024-05-26 19:19] LABS: CK-MB VALUE MASS 1.7 NG/ML (<3.6)
[2024-05-26 19:20] LABS: ETHYL ALCOHOL (ETHANOL) 0.003 % (0.000-0.010)
[2024-05-26 19:21] LABS: CPK CREATINE PHOSPHOKINASE 72 U/L (46-171); MB/CK RELATIVE INDEX 2.36 (< OR =4); SALICYLATE LEVEL < 3.0 MG/DL (<30)
[2024-05-26 19:22] LABS: ALBUMIN 3.3 G/DL (3.2-5.2); ALKALINE PHOSPHATASE 86 U/L (40-129); ALT/SGPT 25 U/L (7.0-40); AST/SGOT 17 U/L (<34); BILIRUBIN,DIRECT 0.2 MG/DL (<0.4); BILIRUBIN,TOTAL 0.4 MG/DL (0.3-1.2); BLOOD UREA NITROGEN 29 MG/DL (9-23); CALCIUM LEVEL 8.7 MG/DL (8.5-10.1); CARBON DIOXIDE LEVEL 30 MMOL/L (20-31); CHLORIDE LEVEL 97 MMOL/L (98-107); CREATININE FOR GFR 1.08 MG/DL (0.70-1.30); GLOMERULAR FILTRATION RATE > 60.0 (>60); GLUCOSE, FASTING 157 MG/DL (60-100); POTASSIUM SERUM 4.1 MMOL/L (3.5-5.1); SODIUM LEVEL 136 MMOL/L (136-145); TOTAL PROTEIN 7.5 G/DL (5.7-8.2)
[2024-05-26 19:23] LABS: THYROID STIMULATING HORMONE 0.894 uIU/ML (0.55-4.78)
[2024-05-26 19:47] LABS: INR 1.09; PARTIAL THROMBOPLASTIN TIME 27.7 SECONDS (24.8-34.2); PROTHROMBIN TIME 14.4 SECONDS (12.5-14.5)
[2024-05-26] MEDS: LEVALBUTEROL 1.25MG 0.5ML CONCENTRATE NEB NEB ONE ×2 (20:43)
[2024-05-26 20:49] LABS: CK-MB VALUE MASS 1.1 NG/ML (<3.6)
[2024-05-26 20:50] LABS: MB/CK RELATIVE INDEX 1.8 (< OR =4)
[2024-05-26] MEDS: AZITHROMYCIN 250MG TABLET PO ONE (21:30)
[2024-05-26] MEDS: dexAMETHasone 20MG/5ML VIAL IV ONE (21:30)
[2024-05-26 22:06] LABS: APPEARANCE, URINE CLEAR (CLEAR); BACTERIA, URINE AUTO NEGATIVE (NEGATIVE); BILIRUBIN, URINE AUTO NEGATIVE (NEGATIVE); BLOOD, URINE BLOOD NEGATIVE (NEGATIVE); COLOR, URINE YELLOW (YELLOW); GLUCOSE, URINE (UA) AUTO NEGATIVE (NEGATIVE); KETONE, URINE AUTO NEGATIVE (NEGATIVE); LEUKOCYTE ESTERASE, URINE AUTO NEGATIVE (NEGATIVE); MUCUS, URINE SMALL (NEGATIVE); NITRITE, URINE AUTO NEGATIVE (NEGATIVE); PROTEIN, URINE AUTO 1+ mg/dL (NEGATIVE); RBC, URINE AUTO 2 /HPF (0-3); SQUAMOUS EPITHELIAL CELL UR AU 0 /HPF (0-6); UROBILINOGEN, URINE AUTO 0.2 mg/dL (0.0-2.0); WBC, URINE AUTO 3 /HPF (0-3)
[2024-05-26 22:07] LABS: SPECIFIC GRAVITY URINE AUTO >1.060 (1.002-1.035)
[2024-05-26 22:13] LABS: PROCALCITONIN 0.61 ng/ml
[2024-05-26] MEDS ORDERED: HOME MED LIST COMPLETE! XX SCH (22:15)
[2024-05-26 22:31] LABS: AMPHETAMINES LEVEL URINE NEGATIVE (NEGATIVE); BARBITURATES URINE NEGATIVE (NEGATIVE); BENZODIAZEPINES URINE NEGATIVE (NEGATIVE); CANNABINOIDS URINE NEGATIVE (NEGATIVE); COCAINE METABOLITE URINE NEGATIVE (NEGATIVE); METHADONE URINE NEGATIVE (NEGATIVE); OPIATES URINE NEGATIVE (NEGATIVE); PHENCYCLIDINE URINE NEGATIVE (NEGATIVE)
[2024-05-26] MEDS ORDERED: MOM 30ML SUSPENSION UDC PO PRN (23:15)
[2024-05-26] MEDS ORDERED: MAALOX 30 ML SUSP *UDC PO PRN (23:15)
[2024-05-27] MEDS: DOXYCYCLINE HYCLATE 100MG TABLET PO SCH (00:51)
[2024-05-27] MEDS: cefTRIAXone SOD 1 GM in DEXTROSE 5% (D5W) ADV/MINI-BAG 50 ML IV SCH (00:51)
[2024-05-27] MEDS: NALOXONE INJ 0.4MG/1ML VIAL IV STA (00:52)
[2024-05-27] MEDS: LEVALBUTEROL 1.25MG 0.5ML CONCENTRATE NEB INH SCH (02:19)
[2024-05-27 06:12] LABS: HEMATOCRIT 38.5 % (42.0-52.0); HEMOGLOBIN 12.3 g/dl (13.5-17.5); MEAN CORPUSCULAR HEMOGLOBIN 30.1 pg (27.0-33.0); MEAN CORPUSCULAR HGB CONC 31.9 g/dl (32.0-36.5); MEAN CORPUSCULAR VOLUME 94.4 fl (80.0-96.0); PLATELET COUNT, AUTOMATED 345 10^3/uL (150-450); RED BLOOD COUNT 4.08 10^6/uL (4.30-6.10); WHITE BLOOD COUNT 13.3 10^3/uL (4.0-10.0)
[2024-05-27 06:45] LABS: PROCALCITONIN 0.76 ng/ml
[2024-05-27 06:47] LABS: ALBUMIN 2.7 G/DL (3.2-5.2); ALKALINE PHOSPHATASE 77 U/L (40-129); ALT/SGPT 27 U/L (7.0-40); AST/SGOT 19 U/L (<34); BILIRUBIN,TOTAL 0.2 MG/DL (0.3-1.2); BLOOD UREA NITROGEN 23 MG/DL (9-23); CALCIUM LEVEL 8.5 MG/DL (8.5-10.1); CARBON DIOXIDE LEVEL 33 MMOL/L (20-31); CHLORIDE LEVEL 97 MMOL/L (98-107); CREATININE FOR GFR 0.82 MG/DL (0.70-1.30); GLOMERULAR FILTRATION RATE > 60.0 (>60); GLUCOSE, FASTING 282 MG/DL (60-100); POTASSIUM SERUM 4.7 MMOL/L (3.5-5.1); SODIUM LEVEL 135 MMOL/L (136-145); TOTAL PROTEIN 6.6 G/DL (5.7-8.2)
[2024-05-27] MEDS: DOCUSATE SODIUM 100MG CAPSULE PO SCH (08:21)
[2024-05-27] MEDS: lisinopriL 5 MG TAB PO SCH (08:22)
[2024-05-27] MEDS: ENOXAPARIN 40MG/0.4ML SYRINGE (J1650 PER 10MG) SC SCH (08:22)
[2024-05-27 08:33] LABS: VENOUS BASE EXCESS 1.6 (-2.0-2.0); VENOUS HCO3 27.3 MMOL/L (23.0-27.0); VENOUS O2 SATURATION 98.7 % (60.0-80.0); VENOUS PARTIAL PRESSURE CO2 47.4 mmHg (38.0-50.0); VENOUS PH 7.379 UNITS (7.330-7.430); VENOUS STANDARD HCO3 25.9 MMOL/L; VENOUS TOTAL CO2 28.8 MMOL/L (24.0-28.0)
[2024-05-27 12:10] VITALS: BP 130/90; TEMP 97.7; O2SAT 93
[2024-05-27] MEDS: predniSONE 20 MG TAB PO SCH (12:55)
[2024-05-27] MEDS: IPRATROPIUM 0.5MG/ALBUTEROL 2.5MG INH SOL UD 3ML (DUONEB) NEB SCH (13:02)
[2024-05-27 19:58] VITALS: O2SAT 92
[2024-05-27 20:00] VITALS: BP 145/84; TEMP 97.3; O2SAT 92
[2024-05-28 04:11] VITALS: BP 127/91; TEMP 97.9; O2SAT 95
[2024-05-28] MEDS: methylPREDNISolone 125MG 2ML VIAL IV SCH (10:01)
[2024-05-28 12:00] VITALS: BP 162/99; TEMP 98.2; O2SAT 94
[2024-05-28 12:33] LABS: HEMATOCRIT 38.3 % (42.0-52.0); HEMOGLOBIN 12.3 g/dl (13.5-17.5); MEAN CORPUSCULAR HEMOGLOBIN 30.4 pg (27.0-33.0); MEAN CORPUSCULAR HGB CONC 32.1 g/dl (32.0-36.5); MEAN CORPUSCULAR VOLUME 94.8 fl (80.0-96.0); PLATELET COUNT, AUTOMATED 381 10^3/uL (150-450); RED BLOOD COUNT 4.04 10^6/uL (4.30-6.10); WHITE BLOOD COUNT 15.3 10^3/uL (4.0-10.0)
[2024-05-28 13:06] LABS: BLOOD UREA NITROGEN 21 MG/DL (9-23); CALCIUM LEVEL 8.8 MG/DL (8.5-10.1); CARBON DIOXIDE LEVEL 34 MMOL/L (20-31); CHLORIDE LEVEL 101 MMOL/L (98-107); CREATININE FOR GFR 0.68 MG/DL (0.70-1.30); GLOMERULAR FILTRATION RATE > 60.0 (>60); GLUCOSE, FASTING 113 MG/DL (60-100); POTASSIUM SERUM 4.3 MMOL/L (3.5-5.1); SODIUM LEVEL 143 MMOL/L (136-145)
[2024-05-28 15:17] VITALS: BP 172/84
[2024-05-28 17:28] VITALS: O2SAT 93
[2024-05-28 21:40] VITALS: BP 147/86; TEMP 97.3; O2SAT 91
[2024-05-28] MEDS: ACETAMINOPHEN 325 MG TAB PO PRN (21:47)
[2024-05-29 04:09] VITALS: BP 162/93; TEMP 98.6; O2SAT 92
[2024-05-29] MEDS ORDERED: ONDANSETRON 4MG 2ML VIAL IV PRN (07:50)
[2024-05-29] MEDS: ONDANSETRON 4MG 2ML VIAL IV ONE (08:05)
[2024-05-29] MEDS: BUPRENORPHINE/NALOXONE 8-2MG SUBLINGUAL TABLET(SUBOXONE) SL SCH (08:41)
[2024-05-29] MEDS ORDERED: BUPRENORPHINE/NALOXONE 8-2MG SUBLINGUAL TABLET(SUBOXONE) SL SCH (09:00)
[2024-05-29] MEDS ORDERED: PANTOPRAZOLE 40MG VIAL IV SCH (09:00)
[2024-05-29 10:38] VITALS: O2SAT 93
[2024-05-29 11:13] VITALS: BP 145/69; TEMP 97.5; O2SAT 94
[2024-05-29] MEDS: PANTOPRAZOLE 40MG TAB (PROTONIX) PO SCH (11:13)
[2024-05-29 11:25] LABS: ERYTHROCYTE SEDIMENTATION RATE 40 mm/hr (0-15)
[2024-05-29] MEDS ORDERED: IPRATROPIUM 0.5MG/ALBUTEROL 2.5MG INH SOL UD 3ML (DUONEB) NEB PRN (11:30)
[2024-05-29 11:57] LABS: C REACTIVE PROTEIN QUANTITATIV 1.94 MG/DL (<1.0)
[2024-05-29 12:04] LABS: PROCALCITONIN 0.31 ng/ml
[2024-05-29 13:39] LABS: HEMATOCRIT 39.4 % (42.0-52.0); HEMOGLOBIN 13.3 g/dl (13.5-17.5); MEAN CORPUSCULAR HEMOGLOBIN 30.8 pg (27.0-33.0); MEAN CORPUSCULAR HGB CONC 33.8 g/dl (32.0-36.5); MEAN CORPUSCULAR VOLUME 91.2 fl (80.0-96.0); PLATELET COUNT, AUTOMATED 468 10^3/uL (150-450); RED BLOOD COUNT 4.32 10^6/uL (4.30-6.10); WHITE BLOOD COUNT 11.3 10^3/uL (4.0-10.0)
[2024-05-29 20:05] VITALS: BP 171/93; TEMP 98.6; O2SAT 95
[2024-05-30 03:58] VITALS: BP 163/95; TEMP 98.6; O2SAT 95
[2024-05-30 08:46] VITALS: BP 163/95
[2024-05-30] MEDS: predniSONE 20 MG TAB PO SCH (08:46)
[2024-05-30] MEDS: CEFDINIR 300 MG CAP (OMNICEF) PO SCH (08:46)
[2024-05-30] MEDS: BUPRENORPHINE/NALOXONE 8-2MG SUBLINGUAL TABLET(SUBOXONE) SL SCH (08:47)
[2024-05-30] MEDS ORDERED: CEFD300CAP PO (09:46)
[2024-05-30] MEDS ORDERED: DOXY100T PO (09:46)
[2024-05-30] MEDS ORDERED: PRED20TA PO (09:46)
[2024-05-30] MEDS ORDERED: SYMB80INH INH (09:47)
[2024-05-30] MEDS ORDERED: BUPR1SUB5 SL (09:51)
== END 2024-05-30 11:17 | disposition home or self-care (01) | DRG 193 ==
LOC: M ED 18:18 → M ED INP 23:12 → M MSPAV 05-27 12:09
PROVIDERS: ADMIT Student in an Organized Health Care Education/Training Program; ATTEND Student in an Organized Health Care Education/Training Program
DX: J12.89 Other viral pneumonia (principal); J96.01 Acute respiratory failure with hypoxia; J45.901 Unspecified asthma with (acute) exacerbation; J44.1 Chronic obstructive pulmonary disease with (acute) exacerbation; J44.0 Chronic obstructive pulmonary disease with (acute) lower respiratory infection; F11.23 Opioid dependence with withdrawal; I10 Essential (primary) hypertension; R55 Syncope and collapse; R91.1 Solitary pulmonary nodule; J15.9 Unspecified bacterial pneumonia; Z79.899 Other long term (current) drug therapy; Z88.6 Allergy status to analgesic agent; Z91.030 Bee allergy status; Z87.891 Personal history of nicotine dependence